=== PATIENT | male | born 1995 | race Caucasian/White ===

== ENCOUNTER 2017-06-06 17:04 | Emergency (ER) | payer MEDICAID ==
[~2017-06-06] VITALS: Ht 188 cm; Wt 90.7 kg
[2017-06-06 17:20] VITALS: BP_SYST 147
[2017-06-06] MEDS ORDERED: NACL 0.9% 1,000 ML IV ONE (17:35)
[2017-06-06] MEDS ORDERED: KETOROLAC TROMETHAMINE 30 MG VIAL IVP ONE (17:45)
[2017-06-06] MEDS ORDERED: ONDANSETRON HCL 4 MG/2 ML VIAL IVP ONE ×2 (17:45→18:15)
[2017-06-06 18:06] LABS: BASOPHILS % (AUTO) 0.2 % (0.0-2.0); EOSINOPHILS # (AUTO) 0.1 K/uL (0.0-0.4); EOSINOPHILS % (AUTO) 0.8 % (0.0-4.0); HEMATOCRIT 44.8 % (36-54); HEMOGLOBIN 14.9 g/dL (14.0-18.0); LYMPHOCYTES # (AUTO) 0.2 K/uL (1.0-5.5); LYMPHOCYTES % (AUTO) 3.1 % (20.5-51.5); MEAN CORPUSCULAR HEMOGLOBIN 31 pg (27-31); MEAN CORPUSCULAR HGB CONC 33 % (32-36); MEAN CORPUSCULAR VOLUME 94 fL (79.0-98.0); MONOCYTES # (AUTO) 0.7 K/uL (0.0-1.0); MONOCYTES % (AUTO) 9.7 % (1.7-9.3); NEUTROPHILS # (AUTO) 5.9 K/uL (1.8-7.7); NEUTROPHILS % (AUTO) 86.2 % (40.0-70.0); PLATELET COUNT (AUTO) 164 K/uL (130-430); RED BLOOD CELL COUNT(AUTO) 4.78 MIL/uL (4.2-6.2); RED CELL DISTRIBUTION WIDTH 12.6 % (9.0-15.0); WHITE BLOOD COUNT (AUTO) 6.9 K/uL (4.5-11.0)
[2017-06-06 18:18] LABS: CALCIUM 8.5 mg/dL (8.4-11.0); CREATININE 1.12 mg/dL (0.55-1.30); POTASSIUM 3.2 mmol/L (3.5-5.1)
[2017-06-06 18:23] LABS: ALBUMIN 3.7 g/dL (3.4-4.8); TOTAL BILIRUBIN 0.4 mg/dL (0.0-1.0)
[2017-06-06] MEDS ORDERED: methylPREDNISolone SOD SUCC/PF 62.5 MG/ML VIAL IVP ONE (19:00)
[2017-06-06] MEDS ORDERED: IPRATROPIUM/ALBUTEROL SULFATE 3 ML AMPUL.NEB INH ONE (19:00)
[2017-06-06 19:47] VITALS: BP_SYST 132
== END 2017-06-06 19:47 | disposition home or self-care (01) ==
LOC: SED 17:04
DX: R11.2 Nausea with vomiting, unspecified (principal); R50.9 Fever, unspecified; R10.84 Generalized abdominal pain; R05 Cough; J45.909 Unspecified asthma, uncomplicated
CPT/HCPCS: 36415; 80053; 83690; 85025; 94640; 96361; 96374; 96375; 99284; J1885; J2405; J2930; J7030

== ENCOUNTER 2019-07-03 13:03 | Emergency (ER) | payer SELFPAY ==
[~2019-07-03] VITALS: Ht 188 cm; Wt 95.3 kg
[2019-07-03 13:03] VITALS: BP_SYST 142
--- NOTE | 2019-07-03 13:03 | NUR ---
BROUGHT BACK TO BED #7 AND TRIAGED. REPORT GIVEN TO RACHEL
--- NOTE | 2019-07-03 13:05 | NUR ---
Patient presented to ER C/O rib pain. Patient A&Ox4, ambulatory, afebrile, skin pink and warm, denies N/V/D, pain 7/, cough. Patient states he was at the [employer] lifting weights on bench when left wrist "gave-out" and wheited bar fell on to chest; pt states he hear 2 "Pop" sounds and had pain immediately.
--- NOTE | 2019-07-03 13:05 | NUR ---
CALLED DR CLARK TO BEDSIDE. DR CLARK EVALUATING PT AT THIS TIME.
[2019-07-03] MEDS ORDERED: ONDANSETRON 4 MG ODT TAB PO ONE (13:15)
[2019-07-03] MEDS ORDERED: MORPHINE SULFATE 10 MG/ML VIAL IM ONE (13:15)
--- NOTE | 2019-07-03 13:25 | NUR ---
MOTHER BROUGHT BACK TO BEDSIDE.
--- NOTE | 2019-07-03 13:26 | NUR ---
TAKEN TO RADIOLOGY VIA [facility]
[2019-07-03 15:15] VITALS: BP_SYST 136
--- NOTE | 2019-07-03 15:15 | NUR ---
Patient given written and verbal discharge instructions and verbalizes understanding. ER MD Dr. Walker discussed with patient the results and treatment provided. Patient in stable condition. ID arm band removed. Rx of Bristow and Naproxen given. Patient educated on pain management and to follow up with PMD. Pain Scale 4/10. Opportunity for questions provided and answered. Medication side effect fact sheet provided.
== END 2019-07-03 15:15 | disposition home or self-care (01) ==
LOC: SED 13:03
DX: R07.89 Other chest pain (principal); J45.909 Unspecified asthma, uncomplicated
CPT/HCPCS: 71045; 71110; 73110; 96372; 99283; J2270; Q0162